=== PATIENT | female | born 2005 | race Caucasian/White ===

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

== ENCOUNTER 2024-01-18 18:15 | Emergency (ER) | payer MEDICAID ==
[2024-01-18 18:23] VITALS: BP 124/89; PULSE 100; TEMP 98.2; O2SAT 98
[2024-01-18] MEDS: ondansetron 4mg rapidly disintigrating tab PO ONE (19:06)
[2024-01-18] MEDS: HYDROcodone/acetaminophen 5mg/325mg tablet PO ONE (19:07)
[2024-01-18] MEDS: ketorolac trometh 30MG/ML vial 30 MG/ML VIAL IM ONE (19:08)
[2024-01-18 19:11] VITALS: RESP 18
== END 2024-01-18 19:17 | disposition home or self-care (01) ==
LOC: ER 18:16
DX: S82.092A Other fracture of left patella, initial encounter for closed fracture (principal); X50.1XXA Overexertion from prolonged static or awkward postures, initial encounter; Y93.89 Activity, other specified; Y92.008 Other place in unspecified non-institutional (private) residence as the place of occurrence of the external cause; Y99.8 Other external cause status
CPT/HCPCS: 29505; 73564; 96372; 99283; J1885

== ENCOUNTER 2024-07-29 09:20 | Emergency (ER) | payer MEDICAID ==
[~2024-07-29] VITALS: Ht 167.6 cm; Wt 77.6 kg
[2024-07-29 09:25] VITALS: BP 130/77; PULSE 88; RESP 14; O2SAT 98
[2024-07-29 10:36] LABS: STREP A SCREEN NEGATIVE (Neg)
[2024-07-29 11:13] VITALS: TEMP 98.4
== END 2024-07-29 11:17 | disposition home or self-care (01) ==
LOC: ER 09:20
DX: J22 Unspecified acute lower respiratory infection (principal)
CPT/HCPCS: 87081; 87880; 99283

== ENCOUNTER 2024-08-04 18:47 | Emergency (ER) | payer MEDICAID ==
[~2024-08-04] VITALS: Ht 167.6 cm; Wt 77.8 kg
[2024-08-04 19:04] VITALS: BP 159/97; PULSE 134; TEMP 101.2; O2SAT 98
[2024-08-04 19:25] LABS: BASOPHILS # (AUTO) 0.1 X10'3 (0-0.2); BASOPHILS % (AUTO) 0.4 % (0-1); EOSINOPHILS % (AUTO) 0.1 % (0-6); HEMOGLOBIN 11.6 g/dl (12.0-16.0); LYMPHOCYTES # (AUTO) 1.2 X10'3 (1.1-4.8); MEAN CORPUSCULAR HEMOGLOBIN 23.9 PG (27.0-31.0); MEAN CORPUSCULAR HGB CONC 32.2 g/dL (33.0-36.5); MEAN CORPUSCULAR VOLUME 74.3 FL (78-98); MEAN PLATELET VOLUME 7.2 FL (7.4-10.4); MONOCYTES # (AUTO) 0.5 X10'3 (0-0.9); MONOCYTES % (AUTO) 4.7 % (2-12); NEUTROPHILS # (AUTO) 9.9 X10'3 (1.8-7.7); NEUTROPHILS % (AUTO) 84.8 % (42-75); PLATELET COUNT 339 X10'3 (140-440); RED BLOOD COUNT 4.85 X10'6 (4.20-5.60); WHITE BLOOD COUNT 11.7 X10'3 (4.5-11.0)
[2024-08-04 19:37] VITALS: RESP 16
[2024-08-04 19:49] LABS: ALANINE AMINOTRANSFERASE 34 U/L (12-78); ALBUMIN 3.7 G/DL (3.4-5.0); ALBUMIN/GLOBULIN RATIO 0.9 (1.1-1.5); ALKALINE PHOSPHATASE 65 IU/L (20-180); ANION GAP 9 (8-16); ASPARTATE AMINO TRANSFERASE 20 U/L (10-37); BILIRUBIN,TOTAL 0.7 MG/DL (0.1-1.0); BLOOD UREA NITROGEN 12 MG/DL (7-18); BUN/CREATININE RATIO 15.2 (10.0-20.0); CALCIUM 9.1 MG/DL (8.5-10.1); CHLORIDE 105 MMOL/L (99-107); CREATININE 0.79 MG/DL (0.40-0.90); GLUCOSE 133 MG/DL (70-104); LIPASE 26 U/L (16-77); POTASSIUM 3.9 MMOL/L (3.5-5.1); SODIUM 140 MMOL/L (135-145); TOTAL CARBON DIOXIDE 26.3 MMOL/L (24-32); TOTAL PROTEIN 7.9 G/DL (6.4-8.2); eCRCL 106 ML/MIN; eGFR > 90 ML/MIN
[2024-08-04 20:13] LABS: BILIRUBIN,URINE NEGATIVE (Neg); CLARITY,URINE CLEAR (Clear); COLOR,URINE YELLOW (Yellow); GLUCOSE, URINE NEGATIVE (Neg); KETONES,URINE NEGATIVE (Neg); LEUKOCYTE ESTERASE ,URINE LARGE (Neg); NITRITES, URINE NEGATIVE (Neg); OCCULT BLOOD,URINE TRACE-INTACT (Neg); PROTEIN,URINE NEGATIVE (Neg)
[2024-08-04 20:14] LABS: URINE HCG NEGATIVE (NEG)
[2024-08-04 20:25] LABS: UA COLLECTION TYPE NON-SPECIFIED
[2024-08-04 20:26] LABS: BACTERIA,URINE 1+ /HPF (Neg); SQUAMOUS EPITHELIAL CELL,UR FEW /LPF (FEW); WBC,URINE 50-100 /HPF (0-4)
--- NOTE | 2024-08-04 20:34 | Physician Documentation ---
History of Present Illness Chief Complaint: Abdominal Pain Stated Complaint: HEADACHE/FLANK PAIN Time Seen by MD: 19:58 OK to notify your PCP?: Yes Primary Medical Doctor: [facility] Source: patient Mode of Arrival: POV, Ambulatory Exam Limitations: no limitations HPI This is a 19-year-old female who comes in complaining of abdominal pain that is began about four days ago and has gotten progressively worse. The pain is mostly in the left lower and mid quadrants of the abdomen. She was had nausea without vomiting. She denies change in bladder or bowel habits. She states the pain radiates straight through to her back. She says today she was spiked a fever which prompted her to come in. She states she was also recently getting over a cold in his here not long ago for sore throat cough. She states it is sore throat went away in the cough is almost completely resolved at this point. She denies neck stiffness or lethargy though she states she has a pounding headache. Last Menstrual Period: Aug 04, 2024 Medication Reconciliation Allergies: Coded Allergies: No Known Allergies (Unverified , 07/29/24) Past Medical History Past Medical History: No Pertinent History Last Menstrual Period: Aug 04, 2024 Physical Exam Vital Signs: Temperature: 101.2, Source: Oral, Heart Rate: 134, Respiratory Rate: 16, BP: 159/97, Pulse Oximetry: 98, Weight: 77.850 Pulse Oximetry Reflects: adequate oxygenation General Appearance: alert, WD/WN, no apparent distress Neck: normal inspection, full range of motion, non-tender Respiratory No accessory muscle use or retractions. Lungs are clear to auscultation all schaeffer. Gastrointestinal To inspection of the abdomen no obvious distention. The patient was tender to palpation of the left lower quadrant of the abdomen extending up to the left mid quadrant. The pain gets less as I palpate up with the abdomen. No rigidity rebound or guarding. Negative Tan's sign. Negative McBurney's point tenderness. No rigidity, rebound or guarding. Back: normal inspection, no CVA tenderness Neurologic: oriented x4, application administrator II-XII nml as tested, memory intact Skin: normal color, warm/dry Progress Results/Orders Reviewed/noted all lab results: Yes Results/Orders Orders - SABINE RIDRE Acetaminophen Iv (08/04/24 20:30) Normal Saline 1,000ml Iv Bolus (08/04/24 20:30) Saline Lock (08/04/24 ) Vital Signs 08/04/24 08/04/24 19:04 19:37 Temp 101.2 Pulse 134 Resp 18 16 B/P (MAP) 159/97 Pulse Ox 98 Laboratory Tests Test 08/04/24 19:15 08/04/24 19:59 White Blood Count 11.7 H Red Blood Count 4.85 Hemoglobin 11.6 L Hematocrit 36.0 Mean Corpuscular Volume 74.3 L Mean Corpuscular Hemoglobin 23.9 L Mean Corpuscular Hemoglobin Concent 32.2 L Red Cell Distribution Width 17.0 H Platelet Count 339 Mean Platelet Volume 7.2 L Neutrophils (%) (Auto) 84.8 H Lymphocytes (%) (Auto) 10.0 L Monocytes (%) (Auto) 4.7 Eosinophils (%) (Auto) 0.1 Basophils (%) (Auto) 0.4 Neutrophils # (Auto) 9.9 H Lymphocytes # (Auto) 1.2 Monocytes # (Auto) 0.5 Eosinophils # (Auto) 0.0 Basophils # (Auto) 0.1 CBC Comment Sodium Level 140 Potassium Level 3.9 Chloride Level 105 Carbon Dioxide Level 26.3 Anion Gap 9 Blood Urea Nitrogen 12 Creatinine 0.79 Estimated GFR/1.73 m2 > 90 BUN/Creatinine Ratio 15.2 Glucose Level 133 H Calcium Level 9.1 Total Bilirubin 0.7 Aspartate Amino Transf (AST/SGOT) 20 Alanine Aminotransferase (ALT/SGPT) 34 Alkaline Phosphatase 65 Total Protein 7.9 Albumin 3.7 Globulin 4.2 Albumin/Globulin Ratio 0.9 L Lipase 26 Chemistry Comments Urine Specimen Description Non-specified Urine Color Yellow Urine Clarity Clear Urine pH 6.0 Urine Specific Chandler 1.010 Urine Protein Negative Urine Glucose (UA) Negative Urine Ketones Negative Urine Occult Blood Trace-intact Urine Nitrite Negative Urine Bilirubin Negative Urine Urobilinogen 1.0 Urine Leukocyte Esterase Large H Urine RBC 3-10 Urine WBC 50-100 H Urine Squamous Epithelial Cells Few Urine Bacteria 1+ Urine Culture Indicated Indicated Volume Urine Centrifuged 10 ml Urine HCG, Qualitative Negative Urine Comment Medical Decision Making Findings The patient was workup was essentially negative aside from findings consistent with a UTI. CT scan did not show any acute issues however did show a tampon in the vaginal canal. I did check with the patient to make sure she was aware of this to be sure that symptoms and not being caused by toxic shock. The patient states she was aware of the tampon it has not been in very long. I gave the patient was 2 g Rocephin IV here and we will continue with the Keflex 500 mg 3 times a day for the next 10 days and instructed her to take ibuprofen or Tylenol for fever and a follow up with the primary care physician for recheck in the next one or two days. She did have a slightly elevated white count of the left 11,000 however not significantly so and she has not no signs of sepsis. Patient was received a L of normal saline as well as a g of acetaminophen and she said she feels much better overall Additional Comments UTI. Pyelonephritis. Diverticulitis. Colitis. Viral syndrome. Departure Disposition: HOME / SELF CARE / HOMELESS Impression: Primary Impression: Acute urinary tract infection Discharge Instructions: Urinary Tract Infection, Adult Additional Instructions: Take the antibiotics as prescribed. Ibuprofen every 6 hours for body aches and fever. Drink lots of water and get plenty of rest. Follow up with the primary care physician for recheck in the next couple of days and return to the ER for any worsening or concerning symptoms. Referrals: NO PRIMARY CARE PROVIDER (PCP) Prescriptions Cephalexin*Monohydrate* (Keflex*) 500 Mg Capsule 1 CAP PO Q8H for 10 Days, #30 CAP Prov: SABINE RIDER 08/04/24 Signature Scribe Signature: No Scribe Attestation: The note accurately reflects work and decisions made by me.Sabine STAPLETON 08/04/24 21:47 SABINE RIDER Aug 04, 2024 20:34
[2024-08-04] MEDS: normal saline 1000ml 1,000 ML IV ONE (20:42)
[2024-08-04] MEDS ORDERED: iohexol 300mg/ml 100ml inj. ONE (20:43)
[2024-08-04] MEDS: acetaminophen 1,000mg/100ml IV 100 ML IV ONE (21:06)
--- NOTE | 2024-08-04 21:22 | RADIOLOGY REPORT ---
Exam: CT CT ABDOMEN PELVIS W/ IV CONTRAST History: Febrile with the left lower quadrant abdominal pain rule out diverticulitis Comparison Study: None available TECHNIQUE: A digital test center administrator image was obtained. During the uneventful, intravenous administration of c ontrast material, multislice data acquisition was obtained through the abdomen and pelvis. The data s et was subsequently reconstructed into axial images. Images reviewed on a wrist examination is an exa mination of axial and multiplanar reformations using a variety of window levels and settings. RADIATION DOSE: DLP 1033.04 mGy.cm; CTDI vol 18.09 mGy. Findings: Lungs: The lung bases are clear. Heart: No cardiomegaly or pericardial effusion. Liver: Unremarkable. Gallbladder: Unremarkable. Spleen: Unremarkable Pancreas: Unremarkable Adrenals: Unremarkable Kidneys: Unremarkable GI tract: Unremarkable. No evidence of diverticulosis. : Unremarkable. Tampon in the vaginal canal. Vasculature: Unremarkable Lymphadenopathy: Absent Peritoneum: No ascites Musculoskeletal: Unremarkable Soft tissues: Unremarkable Impression: 1. No acute abdominopelvic abnormalities. 2. No evidence of diverticulosis.
[2024-08-04] MEDS ORDERED: CEPH-585 PO (21:47)
[2024-08-04] MEDS: CefTRIAXone 2gm/D5W 50ml BAG 50 ML IV ONE (22:07)
== END 2024-08-04 22:44 | disposition home or self-care (01) ==
LOC: ER 18:47
DX: N39.0 Urinary tract infection, site not specified (principal)
CPT/HCPCS: 36415; 74177; 80053; 81001; 81025; 83690; 85025; 87077; 87088; 87186; 96365; 96366; 96367; 99285; J0131; J0696; J7030; Q9967; 96361; 96375

== ENCOUNTER 2024-10-16 22:23 | Emergency (ER) | payer MEDICAID ==
[~2024-10-16] VITALS: Ht 165.1 cm; Wt 77.9 kg
[2024-10-16 22:25] VITALS: BP 127/81; PULSE 98; RESP 16; O2SAT 98
--- NOTE | 2024-10-16 22:33 | Physician Documentation ---
History of Present Illness ~ Chief Complaint: Wrist pain Stated Complaint: RT WRIST/ARM PAIN Time Seen by MD: 22:33 Primary Medical Doctor: [facility] Exam Limitations: intoxication HPI 19-year-old female who presents with right wrist pain after a fall. She tells me that she was partying and drinking a lot of alcohol. She was trying to get a propane tank when she fell and landed on her right wrist. She reports pain in her wrist and hand. She has some superficial bruising elsewhere but otherwise no significant injuries. History is otherwise limited due to her significant intoxication. Her brother is present, who is the sober line driver. He denies seeing any other obvious injuries. Tetanus within 5 years: Yes Medication Reconciliation Allergies: Coded Allergies: No Known Allergies (Unverified , 10/16/24) Past Medical History Past Medical History: No Pertinent History Review of Systems Unable to obtain complete ROS: other (Alcohol intoxication) Physical Exam Vital Signs: Temperature: 97.4, Source: Temporal, Heart Rate: 98, Respiratory Rate: 16, BP: 127/81, Pulse Oximetry: 98, Weight: 77.900 Oxygen Flow Rate: 0 Physical Exam General: This is a young female, who is clearly intoxicated with alcohol, brother at bedside HEENT: Atraumatic, oropharynx is moist. Breath smells of alcohol. The patient has slightly slurred speech. Heart: Mild tachycardia, appears regular Lungs: normal work of breathing, normal oxygen saturation on room air Extremities: Warm and well-perfused Right upper extremity: The patient is noted to move her arm freely with any limitation. She does have an ice pack on her wrist. On exam she is tender diffusely on palpation of her wrist. This includes around the anatomic snuffbox. Otherwise no focal bony point tenderness of the proximal forearm, elbow. No tenderness on palpation of the fingers. Normal sensation to light touch. Strong radial pulse and normal capillary refill. Neuro: Alert and oriented Psychiatric: slurred speech, labile affect, appears clinically intoxicated with alcohol as admitted to Progress Results/Orders Results/Orders Orders - TRISTAN GRIFFITH MD Wrist, Complete (3vw Min) (10/16/24 22:33) Completed Orders - TRISTAN GRIFFITH MD Wrist, Complete (3vw Min) (10/16/24 22:33) Vital Signs 10/16/24 10/16/24 22:25 23:10 Temp 97.4 97.4 Pulse 98 Resp 16 B/P (MAP) 127/81 Pulse Ox 98 O2 Flow Rate 0 Re-Evaluation Re-Evaluation : Re-Evaluation Time: 23:08 Progress Informed by nursing staff that the patient has eloped from the emergency department EKG/XRAY/CT/US/VASC/MRI Bone/Soft Tissue X-Ray (Ext.) : Additional Comment I personally reviewed the x-ray, and it shows: No fracture, dislocation, or significant soft tissue swelling Medical Decision Making General Diff Dx:Considerations: Include: Contusion, Fracture, Sprain Assessment 19-year-old female presenting with right wrist pain after a fall, in the setting of significant alcohol intoxication. On my exam her pain seems primarily located to the wrist. An x-ray was obtained, but the patient eloped from the emergency department before I was able to speak to her again. On review of her x-ray I do not see a fracture or other dangerous process, and so she was not contacted to return to the ER. No further treatments given after she eloped. Overall I suspect that she has a sprain. Departure Disposition: LEFT AWOL/ELOPED Impression: Primary Impression: Wrist sprain Additional Impression: Alcohol intoxication Referrals: NO PRIMARY CARE PROVIDER (PCP) Signature Scribe Signature: na Attestation: TRISTAN Mixon MD Oct 16, 2024 22:33
[2024-10-16 23:10] VITALS: TEMP 97.4
--- NOTE | 2024-10-17 05:18 | RADIOLOGY REPORT ---
Clinical History WRIST PAIN Comparison None Technique: right wrist 4 views Without Contrast NELLY LOPEZ, [id number] Findings: Bones: No displaced fracture. Soft tissues: No swelling. No foreign body Joints: Visualized joints are within normal limits. Impression: 1. No acute fracture or dislocation. This report was electronically signed by Oma Rock MD on 10/17/2024 5:14:23 AM.
== END 2024-10-16 23:12 | disposition left against medical advice (07) ==
LOC: ER 22:24
DX: S63.591A Other specified sprain of right wrist, initial encounter (principal); F10.129 Alcohol abuse with intoxication, unspecified; W18.39XA Other fall on same level, initial encounter; Y93.89 Activity, other specified; Y92.89 Other specified places as the place of occurrence of the external cause; Y99.8 Other external cause status; Y90.9 Presence of alcohol in blood, level not specified
CPT/HCPCS: 73110; 99284

== ENCOUNTER 2024-10-17 08:35 | Emergency (ER) | payer MEDICAID ==
[~2024-10-17] VITALS: Ht 165.1 cm; Wt 77.3 kg
[2024-10-17 08:44] VITALS: BP 121/83; PULSE 104; RESP 18; O2SAT 100
--- NOTE | 2024-10-17 09:58 | RADIOLOGY REPORT ---
CLINICAL INFORMATION: Right wrist pain. TECHNIQUE: 3 views of the right wrist were obtained. COMPARISON: DI WRIST, COMPLETE (3VW MIN) on DOS: 10/16/24 FINDINGS: No acute fracture or dislocation. No significant arthropathy. Adjacent soft tissues are unr emarkable. IMPRESSION: No evidence of acute bony abnormality.
--- NOTE | 2024-10-17 10:52 | Physician Documentation ---
History of Present Illness ~ Chief Complaint: Wrist pain Stated Complaint: R ARM PAIN Time Seen by MD: 09:09 OK to notify your PCP?: Yes Primary Medical Doctor: [facility] Source: patient Mode of Arrival: POV Exam Limitations: no limitations HPI 19-year-old right-handed female with chief complaint right wrist pain after she had a ground level fall last night around 9:00 p.m.. She came to the ER last night but see she was kicked out because she was being belligerent. She states she was drinking a lot of alcohol yesterday and states that when she fell she was sitting on top of a propane tank and fell backwards off of the tank and caught her fall on her right outstretched arm. She did not hit her head there was no loss of consciousness she denies any neck or back pain. Tetanus within 5 years: Yes Medication Reconciliation Allergies: Coded Allergies: No Known Allergies (Unverified , 10/16/24) Past Medical History Past Medical History: No Pertinent History Review of Systems All Other Systems at this time: Reviewed and Negative Physical Exam Vital Signs: Source: Oral, Heart Rate: 104, Respiratory Rate: 18, BP: 121/83, Pulse Oximetry: 100, Weight: 77.270 Physical Exam General Appearance: Alert, WD/WN. NAD. HEENT: NCAT, PERRL, EOMI. Neck: Supple, trachea midline. Cardiovascular: RRR. No m/r/g. Lungs: CTAB. Breathing unlabored Extremities: Right wrist mild swelling more so on the radial side, no ecchymosis or erythema, skin is intact, tenderness over the distal radius. No tenderness over the metacarpals, digits or elbow. Patient is unable to bend her wrist due to pain at the distal radius. Active range motion of elbow and shoulder full. Skin: Warm/dry, normal color Neurological: Alert and oriented x4, normal gait. Psychiatric: Affect congruent with mood. Procedures Procedures Patient's right arm was placed in a sugar-tong splint by performing arts technicians Progress Progress Note Right wrist x-ray was read by the radiologist as negative however I disagree with this read as there does appear to be a faint fracture line that extends through the distal radius, nondisplaced Results/Orders Reviewed/noted all lab results: Yes Results/Orders Orders - ROBERTO COTTRELL Ortho Orders (10/17/24 09:40) Vital Signs 10/17/24 08:44 Pulse 104 Resp 18 B/P (MAP) 121/83 Pulse Ox 100 EKG/XRAY/CT/US/VASC/MRI Bone/Soft Tissue X-Ray (Ext.) : Additional Comment Patient: NELLY LOPZE Medical Record: [id number] [facility] 2005, Age: 19 Sex: Female Location: ER Patient Status: REG ER Service Date/Time: 10/17/24855 Ordering Physician: FLETCHER JENKINS MD Exam: WRIST, COMPLETE (3VW MIN) CLINICAL INFORMATION: Right wrist pain. TECHNIQUE: 3 views of the right wrist were obtained. COMPARISON: DI WRIST, COMPLETE (3VW MIN) on DOS: 10/16/24 FINDINGS: No acute fracture or dislocation. No significant arthropathy. Adjacent soft tissues are unremarkable. IMPRESSION: No evidence of acute bony abnormality. Medical Decision Making Wrist Diff Dx:Considerations: Include: Abrasion, Arthritis, DJD, Gout, Rheumatoid, Septic, Carpal tunnel snydrome, Contusion, Dislocation, Fracture- carpal, Fracture-radius, Fracture-ulna, Ganglion, Laceration, Neurovascular injury, Open fracture, Strain, Other Departure Time of Disposition: 10:52 Disposition: 01 HOME / SELF CARE / HOMELESS Impression: Primary Impression: Wrist joint pain Qualified Codes: M25.531 - Pain in right wrist Condition: Stable Discharge Instructions: Wrist Pain, Adult Additional Instructions: F/U WITH PCP FOR REPEAT XRAY IN 14DAYS YOUR XRAY LOOKS LIKE YOU HAVE A DISTAL RADIAL FRACTURE; HOWEVER, RADIOLOGIST READ THE XRAY NORMAL AND THUS I RECOMMEND REPEATING IN 14DAYS TO CONFIRM EITHER WAY AND THEN HAVING YOUR PCP SEND REFERRAL TO ORTHO AT THAT POINT IF IT IS FRACTURED. Referrals: NO PRIMARY CARE PROVIDER (PCP) Education Educated: Patient Educated regarding: diagnosis, treatment, need for follow up Signature Scribe Signature: x Attestation: ROBERTO Lundberg Oct 17, 2024 10:52
== END 2024-10-17 10:58 | disposition home or self-care (01) ==
LOC: ER 08:36
DX: M25.531 Pain in right wrist (principal)
CPT/HCPCS: 29125; 73110; 99284; A4565; A6446; A6449

== ENCOUNTER 2024-12-30 19:32 | Emergency (ER) | payer MEDICAID ==
[~2024-12-30] VITALS: Ht 165.1 cm; Wt 81.0 kg
[2024-12-30 20:19] LABS: MEAN PLATELET VOLUME 7.2 FL (7.4-10.4); RED CELL DISTRIBUTION WIDTH 16.7 % (11.5-14.5)
[2024-12-30 20:36] LABS: CREATININE 0.68 MG/DL (0.40-0.90); eCRCL 119 ML/MIN; eGFR > 90 ML/MIN
[2024-12-30 20:38] LABS: TOTAL CARBON DIOXIDE 27.2 MMOL/L (24-32)
[2024-12-30 21:55] LABS: LEUKOCYTE ESTERASE ,URINE LARGE (Neg); NITRITES, URINE NEGATIVE (Neg); OCCULT BLOOD,URINE TRACE-INTACT (Neg)
[2024-12-30 21:57] LABS: URINE HCG NEGATIVE (NEG)
[2024-12-30 21:59] LABS: UA COLLECTION TYPE CLN CATCH MIDSTREAM
[2024-12-30 22:04] LABS: MUCUS STRANDS FEW /LPF (Neg); SQUAMOUS EPITHELIAL CELL,UR MANY /LPF (FEW)
--- NOTE | 2024-12-30 22:21 | Physician Documentation ---
History of Present Illness ~ Chief Complaint: Abdominal Pain Stated Complaint: ABDOMINAL PAIN Time Seen by MD: 22:20 Primary Medical Doctor: [facility] Mode of Arrival: POV, Ambulatory HPI Patient presents to the emergency room with one-week history of left-sided abdominal pain along with some mild nausea. Positive vomiting. No dysuria no c ough cold congestion Medication Reconciliation Allergies: Coded Allergies: No Known Allergies (Unverified , 10/16/24) Past Medical History Past Medical History: No Pertinent History Review of Systems ROS All review of systems negative except as per HPI Physical Exam Vital Signs: Temperature: 98.4, Source: Oral, Heart Rate: 77, Respiratory Rate: 16, BP: 122/80, Pulse Oximetry: 97, Weight: 81.000 Oxygen Flow Rate: 0 Physical Exam General: Patient is awake, alert, oriented x4 in no acute distress Head: Normocephalic and atraumatic. Eyes: Conjunctival normal. EOMI. PERRL. ENT: Mucous membranes moist. Neck: Supple, trachea is midline. Chest: Clear to auscultation bilaterally without rales, rhonchi, or wheezes. There is no accessory muscle use or retractions. Cardiac: RRR without murmurs, gallops, or rubs. Abd: Soft, nondistended, mild right upper quadrant tenderness to palpation without peritonitis Progress Results/Orders Results/Orders Completed Orders - LEE ROJAS MD Hcg, Ur Ql (12/30/24 19:49) Cbc/Diff (12/30/24 19:49) BMP (12/30/24 19:49) Lipase (12/30/24 19:49) CMP (12/30/24 19:49) Ua W/Microscopic, Cult If Ind (12/30/24 21:30) Ondansetron Disint. Tablet (Zofran Odt T (12/30/24 22:30) Loperamide Capsule (Imodium Capsule) (12/30/24 22:30) Ibuprofen Tablet (Motrin Tablet) (12/30/24 22:30) Acetaminophen 325mg Tablet (Tylenol Tabl (12/30/24 22:30) Ua With Microscopic (12/30/24 22:45) Medications Received in ER Medications (Trade) Dose Ordered Sig/Loren Route PRN Reason Start Time Stop Time Status Last Admin Dose Admin (Zofran ODT tablet) 4 mg ONCE ONCE PO 12/30/24 22:30 12/30/24 22:31 DC 12/30/24 22:47 4 MG (Imodium capsule) 4 mg ONCE ONCE PO 12/30/24 22:30 12/30/24 22:31 DC 12/30/24 22:47 4 MG (Motrin tablet) 800 mg ONCE ONCE PO 12/30/24 22:30 12/30/24 22:31 DC 12/30/24 22:47 800 MG (Tylenol tablet) 650 mg ONCE ONCE PO 12/30/24 22:30 12/30/24 22:31 DC 12/30/24 22:48 650 MG Vital Signs 12/30/24 12/30/24 12/30/24 12/30/24 19:45 21:47 21:51 23:37 Temp 98.4 Pulse 90 77 86 Resp 20 16 16 16 B/P (MAP) 127/84 122/80 (94) 127/81 (96) Pulse Ox 97 97 95 O2 Flow Rate 0 0 0 Laboratory Tests Test 12/30/24 20:09 12/30/24 21:30 12/30/24 22:45 White Blood Count 10.5 Red Blood Count 5.07 Hemoglobin 12.2 Hematocrit 38.2 Mean Corpuscular Volume 75.4 L Mean Corpuscular Hemoglobin 24.0 L Mean Corpuscular Hemoglobin Concent 31.8 L Red Cell Distribution Width 16.7 H Platelet Count 357 Mean Platelet Volume 7.2 L Neutrophils (%) (Auto) 67.0 Lymphocytes (%) (Auto) 25.8 Monocytes (%) (Auto) 6.1 Eosinophils (%) (Auto) 0.5 Basophils (%) (Auto) 0.6 Neutrophils # (Auto) 7.0 Lymphocytes # (Auto) 2.7 Monocytes # (Auto) 0.6 Eosinophils # (Auto) 0.1 Basophils # (Auto) 0.1 CBC Comment Sodium Level 142 Potassium Level 4.1 Chloride Level 106 Carbon Dioxide Level 27.2 Anion Gap 9 Blood Urea Nitrogen 10 Creatinine 0.68 Estimated GFR/1.73 m2 > 90 BUN/Creatinine Ratio 14.7 Glucose Level 91 Calcium Level 8.9 Total Bilirubin 0.5 Aspartate Amino Transf (AST/SGOT) 18 Alanine Aminotransferase (ALT/SGPT) 22 Alkaline Phosphatase 58 Total Protein 8.4 H Albumin 3.8 Globulin 4.6 H Albumin/Globulin Ratio 0.8 L Lipase 32 Chemistry Comments Urine Specimen Description Cln catch midstream Cln catch midstream Urine Color Straw Straw Urine Clarity Slightly cloudy Slightly cloudy Urine pH 7.0 6.0 Urine Specific Phil Campbell <=1.005 <=1.005 Urine Protein Negative Negative Urine Glucose (UA) Negative Negative Urine Ketones Negative Negative Urine Occult Blood Trace-intact Trace-intact Urine Nitrite Negative Negative Urine Bilirubin Negative Negative Urine Urobilinogen 0.2 0.2 Urine Leukocyte Esterase Large H Large H Urine RBC 3-10 3-10 Urine WBC 20-30 H 20-30 H Urine Squamous Epithelial Cells Many Few Urine Bacteria 1+ 1+ Urine Mucus Few Few Urine Culture Indicated Rejected for culture Volume Urine Centrifuged 10 ml 10 ml Urine HCG, Qualitative Negative Urine Comment Medical Decision Making Findings Patient presents to the emergency room with abdominal pain nausea and diarrhea as per HPI. Differentials include but are not limited to viral syndrome, electrolyte disturbances, dehydration, intra-abdominal infection therefore em ergent labs ordered which were reassuring. Patient does have urinary tract infection although I doubt this is what is causing her symptoms. Symptoms most likely secondary to viral etiology and symptomatic treatment only. Consideration of CT scan however after discussing risks benefits alternatives and utilizing shared decision-making we are deferring CT scan at this time. Departure Disposition: 01 HOME / SELF CARE / HOMELESS Impression: Primary Impression: Acute gastroenteritis Additional Impression: Acute urinary tract infection Condition: Stable Discharge Instructions: Viral Gastroenteritis, Adult, Urinary Tract Infection, Adult Additional Instructions: You may take ibuprofen and Tylenol together for abdominal pain. Referrals: NO PRIMARY CARE PROVIDER (PCP) Prescriptions Loperamide Hcl (Loperamide) 2 Mg Capsule 2 CAP PO Q6H for loose stool for 5 Days, #40 CAP 0 Refills Prov: LEE ROJAS MD 12/30/24 Ondansetron 8mg ODT (Ondansetron Odt) 8 Mg Tab.rapdis 1 TAB PO Q6H for nausea/vomiting for 3 Days, #12 TAB 0 Refills Prov: LEE ROJAS MD 12/30/24 Cephalexin*Monohydrate* (Keflex*) 500 Mg Capsule 1 CAP PO Q12H for 10 Days, #20 CAP Prov: LEE ROJAS MD 12/30/24 Education Educated: Patient, Family Educated regarding: diagnosis, treatment, need for follow up Signature Scribe Signature: No scribe Attestation: The note accurately reflects work and decisions made by me.Lee Rojas MD 12/30/24 23:44 LEE ROJAS MD Dec 30, 2024 22:21
[2024-12-30] MEDS: ibuprofen tablet 400 MG TABLET PO ONE (22:47)
[2024-12-30] MEDS: ondansetron 4mg rapidly disintigrating tab PO ONE (22:47)
[2024-12-30] MEDS: loperamide 2mg capsule PO ONE (22:47)
[2024-12-30 23:26] LABS: LEUKOCYTE ESTERASE ,URINE LARGE (Neg); NITRITES, URINE NEGATIVE (Neg); OCCULT BLOOD,URINE TRACE-INTACT (Neg)
[2024-12-30 23:32] LABS: SQUAMOUS EPITHELIAL CELL,UR FEW /LPF (FEW); UA COLLECTION TYPE CLN CATCH MIDSTREAM
[2024-12-30 23:33] LABS: MUCUS STRANDS FEW /LPF (Neg)
[2024-12-30] MEDS ORDERED: ONDA-245 PO (23:44)
[2024-12-30] MEDS ORDERED: CEPH-585 PO (23:44)
[2024-12-30] MEDS ORDERED: LOPE2CAP PO (23:44)
[2024-12-31 00:08] VITALS: BP 105/68; PULSE 72; RESP 16; TEMP 98.4; O2SAT 96
== END 2024-12-31 00:10 | disposition home or self-care (01) ==
LOC: ER 19:34
DX: K52.9 Noninfective gastroenteritis and colitis, unspecified (principal); N39.0 Urinary tract infection, site not specified
CPT/HCPCS: 36415; 80053; 81001; 81025; 83690; 85025; 99284